=== PATIENT | female | born 1990 | race Caucasian/White ===

== ENCOUNTER 2023-08-04 12:03 | Emergency (ER) | payer BC, SELFPAY ==
[2023-08-04 12:13] VITALS: BP 117/72; PULSE 62; RESP 16; TEMP 36.6; O2SAT 99
--- NOTE | 2023-08-04 13:15 | XR_ITS ---
WS: [id number] Exam: XR shoulder RT min 2V* [id number] Date/Time of Exam: 08/04/2023 1:17 PM Reason For Exam: injury; fractured clavicle There is a comminuted midshaft fracture of the RIGHT clavicle. There is superior displacement of the proximal fragment with [id number] apposition. There is some separation at the fracture site. Normal soft tissues. The remainder of the RIGHT shoulder is intact. IMPRESSION: 1. Displaced midshaft clavicle fracture as detailed above.
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
--- NOTE | 2023-08-05 08:11 | DCPLANNER ---
Message sent to Ortho for a follow up on a displaced clavicular fracture
== END 2023-08-04 13:56 | disposition home or self-care (01) ==
PROVIDERS: Emergency Provider Physician Assistant
DX: S42.021A Displaced fracture of shaft of right clavicle, initial encounter for closed fracture (principal); V29.99XA Rider (driver) (passenger) of other motorcycle injured in unspecified traffic accident, initial encounter
CPT/HCPCS: 73030; 99283

== ENCOUNTER → 2023-08-06 14:03 | Outpatient (BNVA) | payer BC, SELFPAY | PROVIDERS: Referring Provider Physician Assistant; Visit Provider Specialist | DX: S42.021A Displaced fracture of shaft of right clavicle, initial encounter for closed fracture (principal); V29.99XA Rider (driver) (passenger) of other motorcycle injured in unspecified traffic accident, initial encounter; Z01.818 Encounter for other preprocedural examination | CPT/HCPCS: 36415; 73000; 80053; 81003; 85025 ==

== ENCOUNTER 2023-08-12 09:15 | Day surgery (SDC) | payer BC, SELFPAY ==
[2023-08-12] VITALS (10 sets, daily range): BP systolic 111–127; BP diastolic 65–79; PULSE 60–90; RESP 16–18; TEMP 36.2–36.6; O2SAT 94–98; BMI 25.8
--- NOTE | 2023-08-12 | XR_ITS ---
WS: [id number] C-ARM RADIOGRAPHS RIGHT CLAVICLE; 3 IMAGES HISTORY: CHANI PICS COMPARISON: None available. Intraoperative imaging during plate and screw fixation RIGHT clavicle. On the imaging submitted the c lavicle appears in normal position and alignment. IMPRESSION: Intraoperative reduction and fixation RIGHT clavicle fracture.
[2023-08-12 09:44] LABS: OR HCG Qualitative Urine Negative (Negative)
[2023-08-12] MEDS: acetaminophen 1,000 MG/100 ML PIGGYBACK 400 MG IV (09:50)
[2023-08-12] MEDS: sodium chloride 0.9% 1,000 ML 30 ML IV (09:51)
[2023-08-12] MEDS: CELEcoxib 200 mg Capsule 400 MG PO (09:51)
--- NOTE | 2023-08-12 10:23 | ANES.PREANE2 ---
Pre-Anesthetic Assessment Height/Weight: Height 1.68 m Weight 72.575 kg Temp Pulse Resp BP Pulse Ox O2 Del Method 97.5 F L 72 16 111/65 98 Room Air 08/12/23 09:30 08/12/23 09:30 08/12/23 09:30 08/12/23 09:30 08/12/23 09:30 08/12/23 09:30 Operation Date: 08/12/23 10:50 Proposed Procedures p ORIF Clavicle(Right) - Cele Foster MD Familial anesthetic complications: None Was Beta Reinier taken within 24 hours: N/A Was Clonidine taken within 24 hours: N/A Last intake: Intake Last Liquid Date 08/11/23 Last Liquid Time 00:00 Last Solid Date 08/11/23 Last Solid Time 00:00 Social No alcohol and No tobacco Exam alert, oriented x 3, clear to auscultation bilaterally and regular rate & rhythm Airway Mallampati: Class I Dentition: full Anesthetic Plan ASA status: 1 Anesthesia: General and Regional (specify below) Risk of > 500 ml blood loss (7ml/kg in children): No Medications/Allergies Home Medications Medication Instructions Recorded Confirmed Last Taken Type No Known Home Medications 08/11/23 08/11/23 Unknown History Allergies Allergy/AdvReac Type Severity Reaction Status Date / Time No Known Allergies Allergy Verified 08/06/23 14:16 Current Medications Generic Name Dose Route Start Last Admin Trade Name Freq PRN Reason Stop Dose Admin Sodium Chloride 1,000 mls @ 30 mls/hr 08/12/23 09:30 08/12/23 09:51 Sodium Chloride 0.9% IV 08/13/23 09:29 30 mls/hr .Q24H MARLYN Administration PFSH Anesthesia Female Reproductive History Date of last menstrual period: 08/05/23 Data Anesthesia Cardiac Studies: No Data to Display
--- NOTE | 2023-08-12 10:24 | ANES.PROC ---
Anesthesia Procedures Procedure/Date: 08/12/23 Nerve Block ^: Nerve Block 1: Main Anesthesia: general anesthesia Time Out Performed: Yes Consent: requested by attending/covering physician, from patient, from other, risks and benefits reviewed and patient agrees to proceed Nerve block location: interscalene (R) Anesthesia monitors applied: pulse oximetry, EKG, BP cuff and oxygen Nerve block position: semi sitting Anesthetic Used: ropivicaine 0.5% (20 ml) and with decadron (4 mg) Ultrasound used to: recognize landmarks, visualize and ID brachial plexus, in supraclavicular region and visualize and ID interscalene groove Nerve Stimulator Used?: No Interscalene/Femoral BLK: 2 stimuplex 22 g needle used for position and inplane approach, visualize local anesthetic spread and no vascular puncture identified Patient Tolerated Procedure: no complications
[2023-08-12] MEDS: ceFAZolin 2,000 MG in sodium chloride 0.9% (plus) 50 ML 100 MG IV (10:55)
--- NOTE | 2023-08-12 11:01 | W.PM.OPSUD ---
Surgery/Procedure H&P Update DATE OF PROCEDURE: August 12, 2023 DATE H&P PERFORMED: 08/06/23 H&P UPDATE INFORMATION: I have reviewed H&P completed within last 30 days, I have examined patient prior to procedure, No changes to prior documentation and H&P is in [facility] EMR on date indicated PLANNED PROCEDURE: Operation Date: 08/12/23 10:50 Proposed Procedures p ORIF Clavicle(Right) - Cele Foster MD Related Problem List Diagnoses (1) Displaced fracture of clavicle: Qualifiers: Clavicle location: shaft Encounter type: initial encounter Fracture type: closed Laterality: right Qualified Code(s): S42.021A - Displaced fracture of shaft of right clavicle, initial encounter for closed fracture
[2023-08-12] MEDS: ceFAZolin 1,000 mg SDV 1000 MG IRRIGATION (11:45)
[2023-08-12] MEDS: lidocaine-epi 1% 20 mL INJ 10 ML INJECTION (12:50)
[2023-08-12] MEDS: BUPivacaine 0.5% INJ 10 mL INJECTION (12:50)
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
[2023-08-12] MEDS: fentaNYL 50 mcg/mL INJ 2mL IVP (13:25)
[2023-08-12] MEDS: HYDROcodone-acetaminophen 5-325 mg Tablet 1 TAB PO (13:51)
--- NOTE | 2023-08-12 15:25 | ANE.PACU2 ---
Inpatient post-anesthesia follow up: Airway intact: Yes Vital signs: Temperature 97.8 F Pulse Rate 60 Respiratory Rate 17 Blood Pressure 113/66 Pulse Oximetry 96 Oxygen Delivery Me thod Room Air Oxygen Flow Rate Fraction of Inspir ed Oxygen Hydration adequate: Yes Nausea and vomiting: No Pain level: 1 Mental status: Baseline
--- NOTE | 2023-08-12 15:46 | SUR.PHASEII ---
1430 certified pharmacy technician here from [facility] here and pt requesting nausea RX,will relay message to Dr. Foster for a new prescription for zofran. Pt not nauseated at present time,wants to have on hand in case of nausea at home.[id number] engineering technician parking here with new prescription,pt up to bathroom and urinating with out any problems.
== END 2023-08-12 15:28 | disposition home or self-care (01) ==
PROVIDERS: Anesthesiology; Visit Provider Specialist
PROC: (CPT 23515; principal; 2023-08-12 10:40)
DX: S42.021A Displaced fracture of shaft of right clavicle, initial encounter for closed fracture (principal); V29.99XA Rider (driver) (passenger) of other motorcycle injured in unspecified traffic accident, initial encounter
CPT/HCPCS: 23515; 73000; 76000; 81025; 84703; C1713; J0131; J0690; J1100; J2250; J2371; J2405; J2704; J2795; J3010; J3490; J7030; J9999

== ENCOUNTER → 2023-09-02 09:17 | Outpatient (BNVA) | payer BC, SELFPAY | PROVIDERS: Visit Provider Specialist | DX: S42.021D Displaced fracture of shaft of right clavicle, subsequent encounter for fracture with routine healing; V29.99XD Rider (driver) (passenger) of other motorcycle injured in unspecified traffic accident, subsequent encounter | CPT/HCPCS: 73000 ==

== ENCOUNTER → 2023-11-05 14:55 | Outpatient (BNVA) | payer BC, SELFPAY | PROVIDERS: Visit Provider Specialist | DX: S42.021D Displaced fracture of shaft of right clavicle, subsequent encounter for fracture with routine healing; X58.XXXD Exposure to other specified factors, subsequent encounter | CPT/HCPCS: 73000 ==